=== PATIENT | female | born 1935 | race Caucasian/White ===

== ENCOUNTER 2017-10-19 19:37 | Emergency (ER) | payer OTHER ==
[~2017-10-19] VITALS: Ht 170.2 cm; Wt 77.1 kg
[2017-10-19] MEDS ORDERED: LISINOPRIL5 MG PO (20:50)
[2017-10-19] MEDS ORDERED: SORINE 80 MG TA80 M1 PO (20:50)
[2017-10-19] MEDS ORDERED: ASPIR 8181 MG PO (20:51)
[2017-10-19] MEDS ORDERED: COUMADIN 5 MG TA5 M1 PO (20:51)
[2017-10-19] MEDS ORDERED: CLARITIN10 MG PO (20:52)
[2017-10-19] MEDS ORDERED: FLONASE 0.05%50 MCG NASAL (20:53)
[2017-10-19 21:21] LABS: INR 2.5; PROTIME 25.3 Seconds (9.3-11.4)
[2017-10-19 22:13] VITALS: BP 115/65
== END 2017-10-19 22:14 | disposition home or self-care (01) ==
LOC: ER 19:37
PROVIDERS: Physician Assistant
DX: R04.0 Epistaxis (principal); I48.91 Unspecified atrial fibrillation; I10 Essential (primary) hypertension; C18.9 Malignant neoplasm of colon, unspecified; Z95.0 Presence of cardiac pacemaker

== ENCOUNTER 2017-11-11 20:33 | Emergency (ER) | payer OTHER ==
[~2017-11-11] VITALS: Ht 170.2 cm; Wt 77.1 kg
[~2017-11-11 20:33] MED LIST: ASPIR 8181 MG PO; CLARITIN10 MG PO; COUMADIN 5 MG TA5 M1 PO; FLONASE 0.05%50 MCG NASAL; LISINOPRIL5 MG PO; SORINE 80 MG TA80 M1 PO
[2017-11-11] MEDS ORDERED: ANTIVERT25 MG PO (20:52)
[2017-11-11] MEDS ORDERED: PROTONIX40 M1 PO (20:53)
[2017-11-11] MEDS ORDERED: MULTIPLE VITAM1 EACH PO (20:53)
[2017-11-11] MEDS ORDERED: VITAMIN D3400 UNIT PO (20:53)
[2017-11-11] MEDS ORDERED: CALCIUM 600 +1 EAC1 PO (20:53)
[2017-11-11] MEDS ORDERED: MIRALAX17 G1 PO (20:54)
[2017-11-11] MEDS ORDERED: PRESERVISION A1 EACH PO (20:54)
[2017-11-11] MEDS ORDERED: PROLIA60 MG/1 ML SUBQ (20:55)
[2017-11-11] MEDS ORDERED: KEFLEX500 M1 PO (22:07)
[2017-11-11 22:15] VITALS: BP 154/66
== END 2017-11-11 22:16 | disposition home or self-care (01) ==
LOC: ER 20:33
DX: S51.851A Open bite of right forearm, initial encounter (principal); I48.91 Unspecified atrial fibrillation; I10 Essential (primary) hypertension; Z85.038 Personal history of other malignant neoplasm of large intestine; Z95.0 Presence of cardiac pacemaker; Z88.5 Allergy status to narcotic agent; W54.0XXA Bitten by dog, initial encounter; Y93.89 Activity, other specified; Y92.89 Other specified places as the place of occurrence of the external cause; Y99.8 Other external cause status